=== PATIENT | male | born 1985 | race Caucasian/White ===

== ENCOUNTER 2017-07-12 19:15 | Emergency (ER) | payer SELFPAY ==
[~2017-07-12] VITALS: Ht 175.3 cm; Wt 82.5 kg
[2017-07-12 19:19] VITALS: TEMP 36.6; Ht 175.3 cm; Wt 82.5 kg
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
--- NOTE | 2017-07-12 19:53 | DIAGNOSTIC IMAGING REPORT ---
RIGHT ANKLE 3 VIEWS HISTORY: R ankle pain COMPARISON: None. FINDINGS: There is no fracture or dislocation. Soft tissues are unremarkable. No radiopaque foreign bodies. IMPRESSION: No fractures. Electronically signed by: Bishop Nassar M.D. 07/12/2017 7:52 PM Dictated Date/Time: 07/12/2017 7:51 PM
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
[2017-07-12 20:25] VITALS: BP 107/68; PULSE 64; O2SAT 99
== END 2017-07-12 20:24 | disposition home or self-care (01) ==
LOC: C.EDB 19:17 → C.EDD 20:24
DX: S80.01XA Contusion of right knee, initial encounter (principal); S93.401A Sprain of unspecified ligament of right ankle, initial encounter; S00.81XA Abrasion of other part of head, initial encounter; W22.8XXA Striking against or struck by other objects, initial encounter; X58.XXXA Exposure to other specified factors, initial encounter